=== PATIENT | male | born 1980 | race Caucasian/White ===

== ENCOUNTER 2016-08-12 19:25 | Emergency (ER) | payer BC, OTHER ==
[2016-08-12 19:41] VITALS: BP 129/83
[2016-08-12] MEDS ORDERED: Bacitracin Oint 1 GM U/D Packet TOP ONE (20:13)
--- NOTE | 2016-08-12 20:39 | EDM.PDOC ---
ED HPI GENERAL MEDICAL PROBLEM - General Chief Complaint: Laceration Stated Complaint: CUT LEFT RING FINGER Time Seen by Provider: 08/12/16 19:27 Source of Information: Reports: Patient History Limitations: Reports: No Limitations - History of Present Illness INITIAL COMMENTS - FREE TEXT/NARRATIVE: This gentleman was building a steel gate for cattle when a pipe rolled onto his hand. He suffered a laceration to the pad of his left ring finger. This happened just prior to arrival. Last tetanus was about 2 years ago. - Related Data Allergies Allergy/AdvReac Type Severity Reaction Status Date / Time No Known Allergies Allergy Verified 08/12/16 19:35 Home Meds: Home Meds NK [No Known Home Meds] 08/25/14 [History] Past Medical History - Past Health History Medical/Surgical History: Denies Medical/Surgical History Musculoskeletal History: Reports: Fracture Social & Family History - Tobacco Use Smoking Status *Q: Never Smoker Second Hand Smoke Exposure: No - Caffeine Use Caffeine Use: Reports: None - Recreational Drug Use Recreational Drug Use: No ED ROS GENERAL - Review of Systems Review Of Systems: ROS reveals no pertinent complaints other than HPI. ED EXAM, SKIN/RASH Exam: See Below Exam Limited By: No Limitations General Appearance: Alert Extremities: Other (There is a flap-like laceration to the pad of the left ring finger. It's arrow shaped with the point facing proximally. It's a flap that penetrates into the subcutaneous tissues. Neurovascular tendon all intact. It appears to be a clean wound. Total length of laceration approximately 3 cm..) Course - Vital Signs Last Recorded V/S: Last Vital Signs Temp 36.5 C 08/12/16 19:39 Pulse 76 08/12/16 19:39 Resp 14 08/12/16 19:39 BP 129/83 08/12/16 19:39 Pulse Ox 98 08/12/16 19:39 - Orders/Labs/Meds Meds: Medications Discontinued Medications Generic Name Dose Route Start Last Admin Trade Name Bhupinder PRN Reason Stop Dose Admin Bacitracin 1 dose 08/12/16 20:13 08/12/16 20:13 Bacitracin Oint 1 Gm TOP 08/12/16 20:14 1 dose ONETIME ONE Administration Lidocaine HCl 5 ml 08/12/16 20:04 08/12/16 20:13 Xylocaine-Mpf 1% INJECT 08/12/16 20:05 5 ml ONETIME ONE Administration - Re-Assessments/Exams Free Text/Narrative Re-Assessment/Exam: 08/12/16 20:35 Procedure: Laceration repair The wound was injected with a total of 5 mL of 1% plain lidocaine. The patient said he could still feel the needle pricks but it didn't seem to bother him too much. The wound was then cleaned with Hibiclens and then irrigated copiously with normal saline. There was no foreign body. The wound was then closed with running 4-0 nylon. Antibiotic ointment and a sterile dressing were then applied. Departure - Departure Time of Disposition: 20:37 Disposition: Home, Self-Care 01 Condition: fair Clinical Impression: Laceration of finger of left hand - Discharge Information Forms: ED Department Discharge Additional Instructions: Remove the dressing tomorrow evening. Wash with soap and water and apply antibiotic ointment followed by another sterile dressing. Repeat this every day. Keep the dressing clean and dry. Wear gloves while working. Watch for signs of infection. See your doctor or health care provider in 10 days for suture removal
== END 2016-08-12 20:57 | disposition home or self-care (01) ==
LOC: JP.ED 19:25
DX: S61.215A Laceration without foreign body of left ring finger without damage to nail, initial encounter (principal); W23.0XXA Caught, crushed, jammed, or pinched between moving objects, initial encounter
CPT/HCPCS: 12002; 99283-25

== ENCOUNTER 2018-12-30 10:10 | Emergency (ER) | payer BC, OTHER ==
[2018-12-30 10:38] VITALS: BP 110/53; PULSE 101
--- NOTE | 2018-12-30 11:15 | EDM.PDOC ---
ED HPI GENERAL MEDICAL PROBLEM - General Chief Complaint: ENT Problem Stated Complaint: POSSIBLE STREP Time Seen by Provider: 12/30/18 11:03 Source of Information: Reports: Patient History Limitations: Reports: No Limitations - History of Present Illness INITIAL COMMENTS - FREE TEXT/NARRATIVE: 38 yo male presents to the ER with fatigue and sore throat. He was exposed to strep at work. began feeling ill last night. Throat Pain Score (Numeric/FACES): 2 - Related Data Allergies Allergy/AdvReac Type Severity Reaction Status Date / Time No Known Allergies Allergy Verified 12/30/18 10:38 Home Meds: Home Meds NK [No Known Home Meds] 08/25/14 [History] Past Medical History - Past Health History Medical/Surgical History: Denies Medical/Surgical History Musculoskeletal History: Reports: Fracture, Gout Social & Family History - Tobacco Use Smoking Status *Q: Never Smoker - Caffeine Use Caffeine Use: Reports: Soda - Recreational Drug Use Recreational Drug Use: No ED ROS ENT - Review of Systems Review Of Systems: See Below Constitutional: Reports: Chills, Fatigue. Denies: Fever HEENT: Reports: Rhinitis, Throat Pain, Throat Swelling Respiratory: Denies: Shortness of Breath, Wheezing Cardiovascular: Denies: Chest Pain ED EXAM, ENT - Physical Exam Exam: See Below Exam Limited By: No Limitations General Appearance: Alert, WD/WN, No Apparent Distress Ears: Normal External Exam, Normal Canal, Hearing Grossly Normal, Normal TMs Nose: Normal Inspection, Normal Mucousa, No Blood Mouth/Throat: Normal Gums, Normal Lips, Pharyngeal Erythema, Tonsillar Erythema. No: Tonsillar Exudates Head: Atraumatic, Normocephalic Neck: Normal Inspection, Supple, Non-Tender, Full Range of Motion Respiratory/Chest: No Respiratory Distress, Lungs Clear, Normal Breath Sounds, No Accessory Muscle Use, Chest Non-Tender. No: Crackles, Rhonchi, Wheezing Cardiovascular: Normal Peripheral Pulses, No Edema, No Gallop, No JVD, No Murmur , Tachycardia GI/Abdominal: Normal Bowel Sounds, Soft, Non-Tender Neurological: Alert, Oriented Psychiatric: Normal Affect, Normal Mood Skin: Warm, Dry, Intact, Normal Color, No Rash Course - Vital Signs Last Recorded V/S: Last Vital Signs Temp 36.8 C 12/30/18 10:35 Pulse 101 H 12/30/18 10:35 Resp 16 12/30/18 10:35 BP 110/53 L 12/30/18 10:35 Pulse Ox 97 12/30/18 10:35 - Orders/Labs/Meds Orders: Active Orders 24 hr Category Date Time Status CULTURE STREP A CONFIRMATION [] Stat Lab 12/30/18 10:41 Results STREP SCRN A RAPID W CULT CONF [] Stat Lab 12/30/18 10:41 Results Departure - Departure Time of Disposition: 11:13 Disposition: Home, Self-Care 01 Condition: Good Clinical Impression: Acute pharyngitis Qualifiers: Pharyngitis/tonsillitis etiology: unspecified etiology Qualified Code(s): J02.9 - Acute pharyngitis, unspecified - Discharge Information *PRESCRIPTION DRUG MONITORING PROGRAM REVIEWED*: Not Applicable *COPY OF PRESCRIPTION DRUG MONITORING REPORT IN PATIENT JORDAN: Not Applicable Instructions: Viral Respiratory Infection, [id number] Referrals: PCP,None [Primary Care Provider] - Forms: ED Department Discharge Additional Instructions: gargle with salt water multiple times per day increase fluid intake with goal of 1.5-2 liters per day Rest
== END 2018-12-30 11:22 | disposition home or self-care (01) ==
LOC: JP.ED 10:10
DX: J02.9 Acute pharyngitis, unspecified (principal)
CPT/HCPCS: 87081; 87880-QW; 99283

== ENCOUNTER 2021-05-08 10:13 | Emergency (ER) | payer BC ==
[2021-05-08] MEDS ORDERED: Ketorolac 30 MG/ML SDV IM ONE (11:07)
[2021-05-08 12:06] VITALS: BP 111/72; PULSE 69
== END 2021-05-08 12:34 | disposition home or self-care (01) ==
LOC: JP.ED 10:13
DX: R10.9 Unspecified abdominal pain (principal)
CPT/HCPCS: 36415; 74176; 80053; 81001; 83605; 83690; 84484; 85025; 96372; 99284; J1885; 99282